=== PATIENT | female | born 1970 | race Caucasian/White ===

== ENCOUNTER 2018-05-06 11:19 | Emergency (ER) | payer MEDICARE ==
--- NOTE | 2018-05-06 11:37 | ER Report ---
History and Physical Time Seen By MD: 11:26 Hx. of Stated Complaint: LOW ABDO AND RECTAL CRAMPING SEV DAYS, POOR APPETITE, SEV BLOODY STOOLS SINCE YESTERDAY. HPI/ROS CHIEF COMPLAINT: Abdominal pain HISTORY OF PRESENT ILLNESS: This a 48-year-old female presents to the emergency department for abdominal pain. Patient states that about 3 days ago she developed some lower abdominal pain, she states several people work have had similar symptoms however this progressed through the weekend and yesterday she developed some blood in her stool initially bright red blood when wiping and then the consistency and color changed slightly darker however there is no coffee grounds stool noted. Intermittent nausea, no vomiting. Last normal bowel movement was about 4 days ago. She does have a history of ulcerative colitis, diverticulitis. She's had a total hysterectomy. Patient is tearful during the exam. No fevers, +intermittent chills. No dysuria. No chest pain or shortness of breath. No rashes. No meningismus. REVIEW OF SYSTEMS: Constitutional: As above. Eyes: No discharge. ENT: No sore throat. Cardiovascular: No chest pain, no palpitations. Respiratory: No cough, no shortness of breath. Gastrointestinal: As above. Genitourinary: No hematuria. Musculoskeletal: No back pain. Skin: No rashes. Neurological: No headache. Allergies: Coded Allergies: ciprofloxacin (Verified Allergy, Unknown, 05/06/18) meloxicam (Verified Allergy, Unknown, 05/06/18) naproxen (Verified Allergy, Unknown, 05/06/18) Home Meds Active Scripts Prednisone (PREDNISONE) 20 Mg Tablet, 20 MG PO BID, #10 TAB Prov:VADIM SANCHEZ [facility] 05/06/18 Sulfamethoxazole/Trimet 800-160 Mg Tab (BACTRIM DS TABLET) 1 Each Tablet, 1 TAB PO Q12H, #7 TAB Prov:VADIM SANCHEZ [facility] 05/06/18 Reported Medications Sertraline Hcl (ZOLOFT) 25 Mg Tablet, 1 TAB PO QDAY, TAB 05/06/18 Hydromorphone Hcl (DILAUDID) 1 Mg/1 Ml Liquid, 1 MG PO 05/06/18 Omeprazole (OMEPRAZOLE) 20 Mg Capsule.dr, 1 CAP PO BID, CAP 05/06/18 Gabapentin (GABAPENTIN) 300 Mg Capsule, 300 MG PO TID, CAPSULE 05/06/18 Past Medical/Surgical History The patient has a past medical and surgical history of ulcerative colitis, spinal injury with a Medtronic Dilaudid pump, intrathecal, thyroidectomy, hypothyroidism, appendectomy, total hysterectomy. Reviewed Nurses Notes: Yes Constitutional Vital Sign - Last 24 Hours 05/06/18 05/06/18 05/06/18 05/06/18 11:26 11:30 11:34 11:49 Temp 97.3 Pulse 95 91 86 Resp 18 B/P (MAP) 139/102 139/102 (114) Pulse Ox 96 94 97 O2 Delivery Room Air 05/06/18 05/06/18 05/06/18 05/06/18 12:00 12:04 12:19 12:30 Pulse 83 86 B/P (MAP) 146/96 (113) 130/92 (105) Pulse Ox 92 95 05/06/18 05/06/18 05/06/18 05/06/18 12:34 12:49 13:00 13:04 Pulse 76 75 75 B/P (MAP) 130/83 (99) Pulse Ox 93 85 05/06/18 05/06/18 05/06/18 05/06/18 13:09 13:24 13:30 13:39 Pulse 68 71 76 B/P (MAP) 124/86 (99) Pulse Ox 96 96 97 05/06/18 05/06/18 05/06/18 05/06/18 13:54 14:24 14:30 14:39 Pulse 73 76 81 B/P (MAP) 125/81 (96) Pulse Ox 95 93 95 05/06/18 14:44 Temp 98.6 Physical Exam General Appearance: The patient is alert, has no immediate need for airway protection and no signs of toxicity. Eyes: Pupils equal and round no pallor or injection. ENT, Mouth: Mucous membranes are moist. Respiratory: There are no retractions, lungs are clear to auscultation. Cardiovascular: Regular rate and rhythm. Gastrointestinal: Abdomen is soft, tenderness throughout significantly worse in the right and left lower quadrants, with increased tenderness to the left lower quadrant, does radiate to the left flank. No abdominal bruits, hyperactive bowel sounds. Neurological: Alert and oriented 4. Moving all extremities. Following all commands. No focal neuro deficits. Skin: Warm and dry, no rashes. Musculoskeletal: Neck is supple non tender. Extremities are nontender, nonswollen and have full range of motion. DIFFERENTIAL DIAGNOSIS: After history and physical exam differential diagnosis was considered for abdominal pain in a female including but not limited to ovarian cyst, pelvic inflammatory disease, ovarian torsion, urinary tract infection, and appendicitis. Medical Decision Making Data Points Result Diagram: 05/06/18 1224 05/06/18 1224 Laboratory Hematology Test 05/06/18 11:25 05/06/18 11:30 05/06/18 12:24 Urine Color Yellow Urine Clarity Clear Urine pH 6.0 pH (4.8-9.5) Urine Specific Terrell 1.013 Urine Protein Negative mg/dL (NEGATIVE) Urine Glucose (UA) Negative mg/dL (NEGATIVE) Urine Ketones Negative mg/dL (NEGATIVE) Urine Blood Small (NEGATIVE) Urine Nitrite Positive (NEGATIVE) Urine Bilirubin Negative (NEGATIVE) Urine Urobilinogen Negative mg/dL (0.2-1.9) Urine Leukocyte Esterase Trace (NEGATIVE) Urine RBC <1 /HPF (0-2/HPF) Urine WBC 13 /HPF (0-5/HPF) Urine Squamous Epithelial Cells Many /LPF (</=FEW) Urine Bacteria Many /HPF (NONE-FEW) Urine Mucus Few /HPF (NONE-FEW) Stool Leukocytes, Qualitative Positive C. difficile Toxin B Gene (PCR) Negative Red Blood Count 4.48 M/uL (4.17-5.56) Mean Corpuscular Volume 89.7 fL (80.0-96.0) Mean Corpuscular Hemoglobin 30.5 pg (26.0-33.0) Mean Corpuscular Hemoglobin Concent 34.0 g/dL (32.0-36.0) Red Cell Distribution Width 13.3 % (11.5-14.5) Mean Platelet Volume 7.7 fL (7.2-11.1) Neutrophils (%) (Auto) 75.8 % (39.4-72.5) Lymphocytes (%) (Auto) 17.6 % (17.6-49.6) Monocytes (%) (Auto) 5.1 % (4.1-12.4) Eosinophils (%) (Auto) 1.2 % (0.4-6.7) Basophils (%) (Auto) 0.3 % (0.3-1.4) Nucleated RBC Relative Count (auto) 0.0 /100WBC Neutrophils # (Auto) 7.7 K/uL (2.0-7.4) Lymphocytes # (Auto) 1.8 K/uL (1.3-3.6) Monocytes # (Auto) 0.5 K/uL (0.3-1.0) Eosinophils # (Auto) 0.1 K/uL (0.0-0.5) Basophils # (Auto) 0.0 K/uL (0.0-0.1) Nucleated RBC Absolute Count (auto) 0.00 K/uL Peripheral Blood Smear No Y/N Sodium Level 138 mmol/L (137-145) Potassium Level 3.7 mmol/L (3.5-5.0) Chloride Level 109 mmol/L (98-107) Carbon Dioxide Level 20 mmol/L (22-31) Blood Urea Nitrogen 9 mg/dl (7-18) Creatinine 0.60 mg/dl (0.52-1.04) Glomerular Filtration Rate Calc > 60.0 Random Glucose 102 mg/dl (75-110) Calcium Level 9.2 mg/dl (8.4-10.2) Total Bilirubin 0.4 mg/dl (0.2-1.3) Aspartate Amino Transf (AST/SGOT) 27 U/L (0-35) Alanine Aminotransferase (ALT/SGPT) 22 U/L (0-56) Alkaline Phosphatase 88 U/L (0-126) Total Protein 7.0 g/dl (6.3-8.2) Albumin 4.2 g/dl (3.5-5.0) Lipase 30 U/L (23-300) Chemistry Test 05/06/18 11:25 05/06/18 11:30 05/06/18 12:24 Urine Color Yellow Urine Clarity Clear Urine pH 6.0 pH (4.8-9.5) Urine Specific Terrell 1.013 Urine Protein Negative mg/dL (NEGATIVE) Urine Glucose (UA) Negative mg/dL (NEGATIVE) Urine Ketones Negative mg/dL (NEGATIVE) Urine Blood Small (NEGATIVE) Urine Nitrite Positive (NEGATIVE) Urine Bilirubin Negative (NEGATIVE) Urine Urobilinogen Negative mg/dL (0.2-1.9) Urine Leukocyte Esterase Trace (NEGATIVE) Urine RBC <1 /HPF (0-2/HPF) Urine WBC 13 /HPF (0-5/HPF) Urine Squamous Epithelial Cells Many /LPF (</=FEW) Urine Bacteria Many /HPF (NONE-FEW) Urine Mucus Few /HPF (NONE-FEW) Stool Leukocytes, Qualitative Positive C. difficile Toxin B Gene (PCR) Negative White Blood Count 10.1 k/uL (4.5-11.0) Red Blood Count 4.48 M/uL (4.17-5.56) Hemoglobin 13.7 g/dL (12.0-16.0) Hematocrit 40.2 % (34.0-47.0) Mean Corpuscular Volume 89.7 fL (80.0-96.0) Mean Corpuscular Hemoglobin 30.5 pg (26.0-33.0) Mean Corpuscular Hemoglobin Concent 34.0 g/dL (32.0-36.0) Red Cell Distribution Width 13.3 % (11.5-14.5) Platelet Count 177 K/uL (150-450) Mean Platelet Volume 7.7 fL (7.2-11.1) Neutrophils (%) (Auto) 75.8 % (39.4-72.5) Lymphocytes (%) (Auto) 17.6 % (17.6-49.6) Monocytes (%) (Auto) 5.1 % (4.1-12.4) Eosinophils (%) (Auto) 1.2 % (0.4-6.7) Basophils (%) (Auto) 0.3 % (0.3-1.4) Nucleated RBC Relative Count (auto) 0.0 /100WBC Neutrophils # (Auto) 7.7 K/uL (2.0-7.4) Lymphocytes # (Auto) 1.8 K/uL (1.3-3.6) Monocytes # (Auto) 0.5 K/uL (0.3-1.0) Eosinophils # (Auto) 0.1 K/uL (0.0-0.5) Basophils # (Auto) 0.0 K/uL (0.0-0.1) Nucleated RBC Absolute Count (auto) 0.00 K/uL Peripheral Blood Smear No Y/N Glomerular Filtration Rate Calc > 60.0 Calcium Level 9.2 mg/dl (8.4-10.2) Total Bilirubin 0.4 mg/dl (0.2-1.3) Aspartate Amino Transf (AST/SGOT) 27 U/L (0-35) Alanine Aminotransferase (ALT/SGPT) 22 U/L (0-56) Alkaline Phosphatase 88 U/L (0-126) Total Protein 7.0 g/dl (6.3-8.2) Albumin 4.2 g/dl (3.5-5.0) Lipase 30 U/L (23-300) Urinalysis Test 05/06/18 11:25 Urine Color Yellow Urine Clarity Clear Urine pH 6.0 pH (4.8-9.5) Urine Specific Terrell 1.013 Urine Protein Negative mg/dL (NEGATIVE) Urine Glucose (UA) Negative mg/dL (NEGATIVE) Urine Ketones Negative mg/dL (NEGATIVE) Urine Blood Small (NEGATIVE) Urine Nitrite Positive (NEGATIVE) Urine Bilirubin Negative (NEGATIVE) Urine Urobilinogen Negative mg/dL (0.2-1.9) Urine Leukocyte Esterase Trace (NEGATIVE) Urine RBC <1 /HPF (0-2/HPF) Urine WBC 13 /HPF (0-5/HPF) Urine Squamous Epithelial Cells Many /LPF (</=FEW) Urine Bacteria Many /HPF (NONE-FEW) Urine Mucus Few /HPF (NONE-FEW) EKG/Imaging Imaging Location: [facility] [place] Patient: Melly David : 1970 Visit/Account:[id number] Date of Sevice: 05/06/2018 CT ABDOMEN PELVIS W/ CON HISTORY: Abdominal/pelvic pain and cramping. History of ulcerative colitis. Blood in stool. TECHNIQUE: CT abdomen and pelvis with intravenous contrast. One of the following dose optimization techniques was utilized in the performa nce of this exam: Automated exposure control; adjustment of the mA and/or kV according to the patient's size; or use of an iterative reconstruction technique. Specific details can be referenced in the facility's radiology CT exam operational policy. CONTRAST: 75 mL Isovue-370. COMPARISON: None. FINDINGS: Visualized lung bases: Mild right basilar atelectasis. Otherwise negative. Hepatobiliary: Negative. Spleen: Negative. Adrenals: Negative. Pancreas: Negative. Kidneys/: Uterus surgically absent. Otherwise negative. GI: Moderate to advanced long segment wall thickening throughout the descending colon extending into the proximal sigmoid colon. There is moderate pericolonic inflammation. Remaining sigmoid colon and rectum are unremarkable. Moderate fine stool within the proximal colon. Appendix is not definitively identified. There is no inflammatory changes within the expected region. Terminal ileum is unremarkable. No evidence for small bowel obstruction. Vessels/spaces/nodes: Trace free fluid within the pelvis, likely reactive. 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 There is dysplastic changes along the posterior sacrum, possibly related to congenital spina bifida or remote surgery. Note is made of a left ventral abdominal wall spinal stimulator. No acute findings. IMPRESSION: Moderate to advanced long segment wall thickening throughout the descending colon, extending into the proximal sigmoid, with moderate pericolonic inflammation. Findings are likely related to ulcerative colitis given patient's history. No evidence for perforation. Report Dictated By: Jevon Ruelas MD at 05/06/2018 1:31 PM Report E-Signed By: Jevon Ruelas MD at 05/06/2018 1:56 PM WSN:[id number] ED Course/Re-evaluation Clinical Indication for ER IV: Hydration, IV Access ED Course The patient was admitted to room. A history of physical were obtained. Differential diagnoses were considered. An IV was started. A CBC, CMP, lipase were obtained. A 1 L normal saline bolus was given. 4 mg IV Zofran, 4 mg IV morphine 2.CBC unremarkable, chemistry unremarkable, UA showing leukocytes and nitrites, with white blood cells and blood, positive stool leukocytes. Abdomen pelvis CT showing Moderate to advanced long segment wall thickening throughout the descending colon, extending into the proximal sigmoid, with moderate pericolonic inflammation, consistent with the patient's history of ulcerative colitis. I did review the results with the patient, I did tell the patient I will treat her for infectious diarrhea, as well as the urinary tract infection, that she is allergic to Cipro, I did start her on Bactrim for the diarrhea as well as the urinary tract infection. I also recommended starting steroids, patient stated she did not want to take the steroids. Patient will follow-up with her primary care provider within the next 3 days for reevaluation, ultimately I recommended following up with one of our general surgeons for repeat colonoscopy as is been a number of years since the patient has had a colonoscopy. We discussed clear liquid diet, reducing stress and returning to the ER for any other concerns or worsening symptoms, patient was agreeable with going home, attempting the biotics and following up. Patient had no other q uestions or concerns at this time and was discharged home. Decision to Disposition Date: May 06, 2018 Decision to Disposition Time: 14:26 Depart Departure Latest Vital Signs Vital Signs Date Time Temp Pulse Resp B/P (MAP) Pulse Ox O2 Delivery O2 Flow Rate FiO2 05/06/18 14:44 98.6 05/06/18 14:39 81 95 05/06/18 14:30 125/81 (96) 05/06/18 11:26 18 Room Air Impression: Primary Impression: Abdominal pain Additional Impressions: Diarrhea Urinary tract infection Condition: Improved Disposition: HOME OR SELF-CARE Referrals: HERACLIO JOYA JOHN A MD New Scripts Prednisone (PREDNISONE) 20 Mg Tablet 20 MG PO BID, #10 TAB Prov: VADIM SANCHEZ [employer]-BC 05/06/18 Sulfamethoxazole/Trimet 800-160 Mg Tab (BACTRIM DS TABLET) 1 Each Tablet 1 TAB PO Q12H, #7 TAB Prov: VADIM SANCHEZ [employer]-[facility] 05/06/18 Patient Instructions: Acute Diarrhea (ED), Clear Liquid Diet (ED), Diverticulitis (ED), Ulcerative Colitis (ED), Urinary Tract Infection in Women (ED) Additional Instructions: Clear liquid diet for the next 24 hours. Please take it easy for the next 24 hours. Take your antibiotic as prescribed, for a urinary tract infection and infectious diarrhea. Also, take the prednisone prescription for the next 5 days. I would also encourage you to take probiotics while taking your antibiotics, be sure to take these between antibiotic dosing. Please follow-up with your primary care provider within 3 days for reevaluation. Get plenty of rest. Drink plenty of water. Return to the emergency room for any other concerns or worsening symptoms. I would also recommend following up with Dr. Ventura or Dr. Joya for a follow- up colonoscopy. Problem Qualifiers Primary Impression: Abdominal pain Abdominal location: lower abdomen, unspecified Qualified Codes: R10.30 - Lower abdominal pain, unspecified Additional Impressions: Diarrhea Diarrhea type: infectious Qualified Codes: A09 - Infectious gastroenteritis and colitis, unspecified Urinary tract infection Urinary tract infection type: acute cystitis Hematuria presence: with hematuria Qualified Codes: N30.01 - Acute cystitis with hematuria VADIM SANCHEZ-ROSEMARY May 06, 2018 11:37
[2018-05-06] MEDS ORDERED: GABA-549 PO (11:40)
[2018-05-06] MEDS ORDERED: HYDR1LIQ6 PO (11:40)
[2018-05-06] MEDS ORDERED: OMEP-125 PO (11:40)
[2018-05-06] MEDS ORDERED: SERT25TA87 PO (11:40)
[2018-05-06] MEDS ORDERED: NS(*) 0.9% 1000 ML BAG 1,000 ML IV ONE (11:52)
[2018-05-06] MEDS ORDERED: MORPHINE 4 MG/ML SDV IVP ONE ×2 (11:55→14:30)
[2018-05-06] MEDS ORDERED: ONDANSETRON 4 MG/2 ML VIAL IVP ONE (11:55)
[2018-05-06] MEDS ORDERED: IOPAMIDOL 76% 100 ML INFUS BTL 100 ML ONE (12:09)
[2018-05-06 12:37] LABS: PLATELET COUNT, AUTOMATED 177 K/uL (150-450)
--- NOTE | 2018-05-06 14:02 | RADIOLOGY IMAGING REPORT ---
FACILITY: [facility] - [place] PATIENT NAME: Melly David : 1970 MR: [id number] V: [id number] EXAM DATE: ORDERING PHYSICIAN: VADIM SANCHEZ TECHNOLOGIST: Location: [facility] [place] Patient: Melly David : 1970 Visit/Account:[id number] Date of Sevice: 05/06/2018 CT ABDOMEN PELVIS W/ CON HISTORY: Abdominal/pelvic pain and cramping. History of ulcerative colitis. Blood in stool. TECHNIQUE: CT abdomen and pelvis with intravenous contrast. One of the following dose optimization techniques was utilized in the performance of this exam: Autom ated exposure control; adjustment of the mA and/or kV according to the patient's size; or use of an i terative reconstruction technique. Specific details can be referenced in the facility's radiology C T exam operational policy. CONTRAST: 75 mL Isovue-370. COMPARISON: None. FINDINGS: Visualized lung bases: Mild right basilar atelectasis. Otherwise negative. Hepatobiliary: Negative. Spleen: Negative. Adrenals: Negative. Pancreas: Negative. Kidneys/: Uterus surgically absent. Otherwise negative. GI: Moderate to advanced long segment wall thickening throughout the descending colon extending into the proximal sigmoid colon. There is moderate pericolonic inflammation. Remaining sigmoid colon an d rectum are unremarkable. Moderate fine stool within the proximal colon. Appendix is not definitiv clifford identified. There is no inflammatory changes within the expected region. Terminal ileum is unre markable. No evidence for small bowel obstruction. Vessels/spaces/nodes: Trace free fluid within the pelvis, likely reactive. 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 There is dysplastic changes along the p osterior sacrum, possibly related to congenital spina bifida or remote surgery. Note is made of a le ft ventral abdominal wall spinal stimulator. No acute findings. IMPRESSION: Moderate to advanced long segment wall thickening throughout the descending colon, extending into the proximal sigmoid, with moderate pericolonic inflammation. Findings are likely related to ulcerative colitis given patient's history. No evidence for perforation. Report Dictated By: Jevon Ruelas MD at 05/06/2018 1:31 PM Report E-Signed By: Jevon Ruelas MD at 05/06/2018 1:56 PM WSN:[id number]
[2018-05-06 14:30] VITALS: BP 125/81
[2018-05-06] MEDS ORDERED: SULF-198 PO (14:34)
[2018-05-06] MEDS ORDERED: PRED20TA6 PO (14:34)
== END 2018-05-06 14:52 | disposition home or self-care (01) ==
LOC: ER 11:38
DX: R10.30 Lower abdominal pain, unspecified (principal); A09 Infectious gastroenteritis and colitis, unspecified; N30.01 Acute cystitis with hematuria
CPT/HCPCS: 74177; 81001; 83630; 83690; 85025; 87045; 87493; 96361; 96374; 96375; 96376; 99284; J2270; J2405; J7030; Q9967; 36415; 82040; 82247; 82310; 82374; 82435; 82565; 82947; 84075; 84132; 84155; 84295; 84450; 84460; 84520

== ENCOUNTER → 2018-07-23 | Outpatient (CLI) | payer MEDICARE ==
[~2018-07-23] MED LIST: GABA-549 PO; HYDR1LIQ6 PO; OMEP-125 PO; PRED20TA6 PO; SERT25TA87 PO; SULF-198 PO
--- NOTE | 2018-07-23 19:32 | RADIOLOGY IMAGING REPORT ---
FACILITY: [facility] PATIENT NAME: Melly David : 1970 MR: [id number] V: [id number] EXAM DATE: ORDERING PHYSICIAN: MARY LY TECHNOLOGIST: Location: [facility] - [place], [place] Patient: Melly David : 1970 Visit/Account:[id number] Date of Sevice: 07/23/2018 Study: CT scan of the brain without intravenous contrast. Indication: Head trauma Comparison study:None Technique: Multiple axial images were obtained through the brain without the use of intravenous contr ast. One of the following dose optimization techniques was utilized in the performance of this exam: Autom ated exposure control; adjustment of the mA and/or kV according to the patient's size; or use of an i terative reconstruction technique. Specific details can be referenced in the facility's radiology C T exam operational policy. The examination demonstrates no evidence of acute intracranial hemorrhage. There is no evidence of ex tra-axial collection or hydrocephalus. There is no abnormal density identified within the brain parenchyma. There is no evidence of disruption of the peripheral burks-white junction. The bony structures are unremarkable. IMPRESSION:Unremarkable CT scan of the brain without contrast. Report Dictated By: Keith Saunders at 07/23/2018 7:25 PM Report E-Signed By: Keith Saunders at 07/23/2018 7:28 PM WSN:[id number]
== END ==
LOC: CT 18:59
PROVIDERS: ATTEND Nurse Practitioner Family
DX: S09.90XA Unspecified injury of head, initial encounter (principal)
CPT/HCPCS: 70450